=== PATIENT | female | born 1945 ===

== ENCOUNTER 2021-04-12 10:15 | Inpatient (IN) | payer OTHER ==
[~2021-04-12] VITALS: Ht 165.1 cm; Wt 82.6 kg
[2021-04-12] MEDS ORDERED: TIROSINT88 MCG PO (13:45)
[2021-04-12] MEDS ORDERED: COZAAR100 MG PO (13:45)
[2021-04-12] MEDS ORDERED: TOPROL XL50 M1 PO (13:46)
[2021-04-12] MEDS ORDERED: GABAPEN PO (13:46)
[2021-04-12] MEDS ORDERED: TOPROL XL100 M1 PO (13:46)
[2021-04-17] MEDS ORDERED: DIAZEPAM5 MG PO (13:01)
[2021-04-17] MEDS ORDERED: AMOX-CLAV 875-1 EACH PO (13:01)
[2021-04-17] MEDS ORDERED: MEDROLPACK PO (13:01)
[2021-04-17] MEDS ORDERED: NEURONTIN800 MG PO (13:01)
[2021-04-17] MEDS ORDERED: PERCOCET 5-3251 EACH PO (13:01)
[2021-04-17] MEDS ORDERED: COLACE100 MG PO (13:01)
== END 2021-04-18 17:35 | disposition home or self-care (01) | DRG 455 ==
LOC: EDBD 04-17 06:41 → O/R 04-17 06:41 → SURH 04-17 10:15 → O/R 04-18 17:35 → EDBD 04-18 17:35
PROVIDERS: ADMIT Orthopaedic Surgery Orthopaedic Surgery of the Spine; ATTEND Orthopaedic Surgery Orthopaedic Surgery of the Spine
PROC: 0SG10J1 Fusion of 2 or more Lumbar Vertebral Joints with Synthetic Substitute, Posterior Approach, Posterior Column, Open Approach (ICD-10-PCS; 2021-04-17)
PROC: 07DR3ZZ Extraction of Iliac Bone Marrow, Percutaneous Approach (ICD-10-PCS; 2021-04-17)
PROC: XRGC0F3 Fusion of 2 or more Lumbar Vertebral Joints using Radiolucent Porous Interbody Fusion Device, Open Approach, New Technology Group 3 (ICD-10-PCS; principal; 2021-04-17 13:45)
DX: M43.16 Spondylolisthesis, lumbar region (principal); M41.86 Other forms of scoliosis, lumbar region; M48.062 Spinal stenosis, lumbar region with neurogenic claudication

== ENCOUNTER 2021-04-23 21:49 | Emergency (ER) | payer OTHER ==
[~2021-04-23] VITALS: Ht 167.6 cm; Wt 82.6 kg
[~2021-04-23 21:49] MED LIST: AMOX-CLAV 875-1 EACH PO; COLACE100 MG PO; COZAAR100 MG PO; DIAZEPAM5 MG PO; GABAPEN PO; MEDROLPACK PO; NEURONTIN800 MG PO; PERCOCET 5-3251 EACH PO; TIROSINT88 MCG PO; TOPROL XL100 M1 PO; TOPROL XL50 M1 PO
== END 2021-04-24 03:46 | disposition designated cancer center or children's hospital (05) ==
LOC: ER 21:49 → EDBD 21:55 → ER 21:55
DX: R55 Syncope and collapse (principal)